=== PATIENT | male | born 2000 | race Two or more races ===

== ENCOUNTER 2023-05-05 21:28 | Emergency (ER) | payer OTHER ==
[~2023-05-05] VITALS: Ht 182.9 cm; Wt 118.2 kg
[2023-05-05 21:36] VITALS: BP 131/90; PULSE 94; RESP 17; O2SAT 97
== END 2023-05-05 22:38 | disposition home or self-care (01) ==
LOC: ER 21:28
DX: R60.0 Localized edema (principal); Z88.8 Allergy status to other drugs, medicaments and biological substances